=== PATIENT | female | born 1945 | race Caucasian/White ===

== ENCOUNTER 2022-02-12 14:20 | Emergency (ER) | payer MEDICARE, BC ==
[2022-02-12 14:43] VITALS: TEMP 98.3
[2022-02-12] MEDS ORDERED: KETOROLAC 15 MG/ML 1 ML VIAL IM STA (15:45)
--- NOTE | 2022-02-12 15:47 | ED ---
General Adult HPI - General Chief complaint: Fall Stated complaint: fell down escalator & hurt back Time Seen by Provider: 02/12/22 15:30 Source: patient, RN notes reviewed, old records reviewed Mode of arrival: ambulatory Limitations: no limitations - History of Present Illness Initial comments: This is a 76-year-old female presents emergency Department complaining of left lower back pain. Patient states on Friday she fell down the escalator. Patient states she did not hit her head or neck. Patient denies any upper extremity pain. Patient states she has some lower left thoracic tenderness and bruising. Patient has full range of motion of the hips and legs as well as the arms. Patient has some tenderness over the lateral aspect of the hip where there is some ecchymosis. Patient denies being on blood thinners. - Related Data Allergies Allergy/AdvReac Type Severity Reaction Status Date / Time No Known Allergies Allergy Verified 02/12/22 14:42 Review of Systems ROS Statement: Those systems with pertinent positive or pertinent negative responses have been documented in the HPI. ROS Other: All systems not noted in ROS Statement are negative. Past Medical History Past Medical History: No Reported History History of Any Multi-Drug Resistant Organisms: None Reported Past Surgical History: Cholecystectomy, Hysterectomy, Tonsillectomy Additional Past Surgical History / Comment(s): Back Past Psychological History: No Psychological Hx Reported Smoking Status: Never smoker Past Alcohol Use History: None Reported Past Drug Use History: None Reported General Exam - General Exam Comments Initial Comments: GENERAL: Patient is well-developed and well-nourished. Patient is nontoxic and well- hydrated and is in mild distress. ENT: Neck is soft and supple. No significant lymphadenopathy is noted. Oropharynx is clear. Moist mucous membranes. Neck has full range of motion without eliciting any pain. Patient has some mild tenderness of the sternocleidomastoid mastoid muscle bilaterally EYES: The sclera were anicteric and conjunctiva were pink and moist. Extraocular movements were intact and pupils were equal round and reactive to light. Eyelids were unremarkable. PULMONARY: Unlabored respirations. Good breath sounds bilaterally. No audible rales rhonchi or wheezing was noted. CARDIOVASCULAR: There is a regular rate and rhythm without any murmurs gallops or rubs. ABDOMEN: Soft and nontender with normal bowel sounds. No palpable organomegaly was noted. There is no palpable pulsatile mass. SKIN: Patient has some abrasions to the lower left thoracic and lower back region those areas are slightly tender to palpation. Patient also has some ecchymotic area in the lateral posterior area of the left hip NEUROLOGIC: Patient is alert and oriented x3. Cranial nerves II through XII are grossly intact. Motor and sensory are also intact. Normal speech, volume and content. Symmetrical smile. intact. MUSCULOSKELETAL: Normal extremities with adequate strength and full range of motion. Patient has some tenderness to the posterior lateral aspect of the left hip LYMPHATICS: No significant lymphadenopathy is noted PSYCHIATRIC: Normal psychiatric evaluation. Limitations: no limitations Course Vital Signs 02/12/22 14:39 Temperature 98.3 F Pulse Rate 77 Respiratory 20 Rate Blood Pressure 175/73 O2 Sat by Pulse 98 Oximetry Medical Decision Making - Medical Decision Making X-ray of the chest showed something in the right ventricle area so that CT was ordered and showed no acute abnormality and did however show a 4.5 a sending thoracic aneurysm Left hip and pelvis showed no acute abnormality. - Lab Data Lab Results 02/12/22 Range/Units 17:49 Urine Color Yellow Urine Appearance Clear (Clear) Urine pH 5.5 (5.0-8.0) Ur Specific [place] 1.032 (1.001-1.035) Urine Protein Trace H (Negative) Urine Glucose (UA) Negative (Negative) Urine Ketones Trace H (Negative) Urine Blood Negative (Negative) Urine Nitrite Negative (Negative) Urine Bilirubin Negative (Negative) Urine Urobilinogen <2.0 (<2.0) mg/dL Ur Leukocyte Esterase Trace H (Negative) Urine RBC 3 (0-5) /hpf Urine WBC 1 (0-5) /hpf Ur Squamous Epith Cells 3 (0-4) /hpf Urine Mucus Few H (None) /hpf Disposition Clinical Impression: Thoracic ascending aortic aneurysm, Multiple contusions Disposition: HOME SELF-CARE Condition: Good Instructions (If sedation given, give patient instructions): Fall Prevention (ED), Contusion in Adults (ED) Is patient prescribed a controlled substance at d/c from ED?: No Referrals: None,Stated [Primary Care Provider] - 1-2 days Time of Disposition: 18:49
--- NOTE | 2022-02-12 16:12 | XR ---
EXAMINATION TYPE: XR chest 2V DATE OF EXAM: 02/12/2022 COMPARISON: NONE HISTORY: Difficulty breathing. TECHNIQUE: Frontal and lateral views of the chest are obtained. FINDINGS: Some increased interstitial markings bilaterally. Cardiomegaly is present. No suspicious fo vimal consolidation. No pleural effusion or pneumothorax seen bilaterally. Prominent along the right he art border noted. The osseous structures are intact. IMPRESSION: Cardiomegaly. Possible prominent right heart border versus adjacent mass and/or obstruct marisol atelectasis. Correlation with old outside x-ray would be beneficial otherwise consider CT to furt her evaluate.
--- NOTE | 2022-02-12 16:13 | XR ---
EXAMINATION TYPE: XR Hip LT and AP Pelvis DATE OF EXAM: 02/12/2022 COMPARISON: NONE HISTORY: Trauma injury with pelvic and left hip pain TECHNIQUE: A single AP view of the pelvis is obtained. Two views of the left hip are obtained. FINDINGS: There is no acute fracture/dislocation evident in the pelvis. [id number] axial joint space loss in both hips. The sacroiliac joints are symmetric and felt within normal limits. Pubic s ymphysis is intact. Occasional overlying scattered pelvic phleboliths noted. Two views of left hip show no acute fracture or dislocation. No focal lytic or sclerotic lesion seen in the proximal left femur. The overlying soft tissue is unremarkable. IMPRESSION: There is no acute fracture or dislocation in the pelvis or left hip.
[2022-02-12 18:07] LABS: Appearance,Urine Clear (Clear); Bilirubin,Urine Negative (Negative); Blood,Urine Negative (Negative); Color,Urine Yellow; Glucose,Urine (UA) Negative (Negative); Ketones,Urine Trace (Negative); Leukocyte Esterase,Urine Trace (Negative); Mucus,Urine Few /hpf; Nitrite,Urine Negative (Negative); PH, Urine 5.5 (5.0-8.0); Protein,Urine Trace (Negative); RBC,Urine 3 /hpf (0-5); Specific Gravity,Urine 1.032 (1.001-1.035); Squamous Epithelial Cell,Urine 3 /hpf (0-4); Urobilinogen,Urine <2.0 mg/dL (<2.0); WBC,Urine 1 /hpf (0-5)
--- NOTE | 2022-02-12 18:42 | CT ---
EXAMINATION TYPE: CT chest wo con DATE OF EXAM: 02/12/2022 COMPARISON: None HISTORY: pain after falling down escalator today CT DLP: 430.3 mGycm Automated exposure control for dose reduction was used. Images obtained from the thoracic inlet to the diaphragm with no contrast. Thoracic aorta is atheromatous. No mediastinal adenopathy. There are no hilar masses. There is some m inimal coronary artery calcification. There is aneurysm of the ascending aorta measures 4.5 cm. No pe ricardial effusion. Heart size is fairly normal. No pleural effusion or pneumothorax. Lungs are clear of consolidation. Upper abdominal soft tissues a re intact. There are clips from cholecystectomy. The thoracic and lumbar spine appear intact. There is degenerative spur formation throughout the thor acic spine. Sternum is intact. No compression fracture. No evidence of rib fracture. There is osteoar thritis in both shoulder joints. IMPRESSION: No sign of acute traumatic injury. Thoracic aortic aneurysm.
[2022-02-12 19:05] VITALS: BP 175/84; PULSE 64; RESP 16
== END 2022-02-12 19:05 | disposition home or self-care (01) ==
LOC: EC 14:20
DX: S70.02XA Contusion of left hip, initial encounter (principal); S20.412A Abrasion of left back wall of thorax, initial encounter; S30.810A Abrasion of lower back and pelvis, initial encounter; I71.2 Thoracic aortic aneurysm, without rupture; W10.0XXA Fall (on)(from) escalator, initial encounter
CPT/HCPCS: 96372 ×2; 99284 ×2; 81001; 73502; 71046; 71250; J1885